=== PATIENT | male | born 1990 | race Caucasian/White ===

== ENCOUNTER → 2021-11-29 07:52 | Outpatient (CLI) | payer OTHER, SELFPAY ==
--- NOTE | ~2021-11-29 | CT_ITS ---
EXAMINATION: CT lumbar spine wo con DATE: 11/29/2021 08:13 INDICATION: Low back pain. Spondylolisthesis. TECHNIQUE: Computed tomography (CT) of the lumbar spine was performed without intravenous contrast. A utomated exposure control and iterative reconstruction technique were employed. The dose-length produ ct was 612.24 mGy-cm. COMPARISON: None FINDINGS: There are chronic bilateral L5 pars defects. There is 4 mm anterolisthesis of L5 on S1. The re is 4 degrees levocurvature of lumbar spine. There is mild chronic height loss of L5 vertebral body posteriorly. There is mildly decreased disc height at L4-L5 and L5-S1. The following disc levels are specifically discussed: L1-L2: The disc does not extend beyond the endplate margin. There is mild bilateral facet joint osteo arthritis. There is no neural foraminal stenosis. There is no central canal stenosis. L2-L3: The disc does not extend beyond the endplate margin. There is mild bilateral facet joint osteo arthritis. There is no neural foraminal stenosis. There is no central canal stenosis. L3-L4: The disc is bulging. There is mild bilateral facet joint osteoarthritis. There is mild bilater al neural foraminal stenosis. There is mild central canal stenosis. L4-L5: The disc is bulging. There is mild bilateral facet joint osteoarthritis. There is mild bilater al neural foraminal stenosis. There is mild central canal stenosis. L5-S1: The disc is bulging. There is mild bilateral facet joint osteoarthritis. There is mild right a nd moderate left neural foraminal stenosis. There is mild central canal stenosis. IMPRESSION: 1. Chronic bilateral L5 pars defects with grade 1 anterolisthesis of L5 on S1. 2. Moderate lower lumbar spondylosis. Reviewed, dictated and finalized at location B.
== END ==
PROVIDERS: PCP Physician Assistant Medical; Visit Provider Physician Assistant Medical
DX: M47.817 Spondylosis without myelopathy or radiculopathy, lumbosacral region (principal); M48.07 Spinal stenosis, lumbosacral region
CPT/HCPCS: 72131

== ENCOUNTER 2023-12-12 15:00 | Outpatient (RCR) | payer OTHER, SELFPAY ==
--- NOTE | 2023-12-04 17:43 | OPREHPOC ---
Outpatient Therapy Plan of Care This is a Multidisciplinary Plan of Care that may contain components documented by all disciplines (PT, OT, and ST.) PT Goal 1 Goal Pt will be independent in HEP Pt will verbalize understanding of diagnosis and prognosis Target Visit 6 PT Problem 2 PT Problem #2 Pain PT Goal 1 Goal Pt will report greatest pain level at 3/10 or less to improve ADLs and activities Target Visit 6 PT Goal 2 Goal Pt will report resolution of pain to return to PLOF Target Visit 12 PT Problem 3 PT Problem #3 Impaired Strength PT Goal 1 Goal Pt will demo strength of 5/5 in all tested planes Target Visit 6 PT Goal 2 Goal Pt will demo core strength of 3+/5 of the TRAM to improve lumbopelvic stability Target Visit 12 PT Problem 4 PT Problem #4 Impaired Coordination PT Goal 1 Goal Pt will demo appropriate postures in sitting and standing without cueing for 50% of session Target Visit 12
--- NOTE | 2023-12-04 17:43 | PTOPEVAL1 ---
Assessment and note entered by Shabana Issa, PT Evaluation Information Assessment Status Evaluation Diagnosis low back pain unspecified, spondylosis without myelopathy or radiculopathy Therapy conditions abnormal posture weakness Onset a few years Subjective Information Pt reports has been dealing with back pain multiple years. Does have pain into legs at times, not every day. States when back is inflammed the hips will hurt. Pt states previously had seen PT for issue about two years ago when he was sitting and turn left, then pulled something in his back. Could not walk to his car straight, and a few days later this went away. Reports now has pain daily with waking up, worsens through the day at varying levels depending on what he is doing that day. States he used to play hockey and soft ball but is unable as his back pain required increased time to recover between games. Reported Pain Level Pain Score 2: Self Report Assessment PT Clinical Summary Pt presents with back pain that has persisted approximately 2 years. He demos excessive ROM of lumbar spine, abnormal postures including slouched posture with unsupported sitting and sacral sitting in supportive chair, decreased lumbopelvic core strength especially of the TRAM. Imaging review shows multilevel degenerative changes, multi level bulging discs, pars defect, and anterolisthesis. Pt will benefit from therapy to educate patient, address deficits, and improve pain to achieve optimal activity level with minimal pain. Plan of Care Interventions Check Out for Orthotic/Pr,Electrical Stimulation, Hot Pack/Cold Pack,Manual Therapy,Mechanical Traction,Neuro Re-education,Patient/Caregiver Educati,Therapeutic Activities,Therapeutic Exercise,Self-Care/Home Management,Ultrasound PT Services Indicated Yes Treatment Frequency and 1-2x weekly x 12 visits Duration These treatments will address the objective and functional deficits as defined above. The patient will be advanced safely and appropriately in order for the patient to progress towards his/her prior level of function. Additional exercises will be introduced and as well
--- NOTE | 2023-12-18 17:04 | PCPTNOTE ---
Patient did not show up for scheduled appointment this date.
--- NOTE | 2024-01-02 14:16 | PCPTNOTE ---
Admitting Provider: Attending Provider: Harsha Jauregui MD Patient:Noah Pelletier Date of :1990 Patient has not returned for any further treatments since 12/12/2023, therefore he will be discharged at this time. Patient?s initial visit was on 12/03/2023 13:45 and he had a total of 2 visits with 2 cancellations and 2 no-call no-shows. Per department policy, pt is being discharged due to nonattendance. Pt has been verbally notified, as well as encouraged to return to therapy at a later time as his schedule allows. The goals have not been met. Thank you for referring this patient to [facility]. Please review, sign, date and return this discharge summary GELA. I have been updated about the patient's current status and I agree with discharge from the above service at this time. Referring Physician Date
== END 2024-01-03 13:48 | disposition home or self-care (01) ==
LOC: ANHHIPT 15:00
PROVIDERS: PCP Family Medicine; Visit Provider Family Medicine
DX: M54.50 Low back pain, unspecified (principal); M47.816 Spondylosis without myelopathy or radiculopathy, lumbar region
CPT/HCPCS: 97110; 97140; 97162; 97530